=== PATIENT | female | born 1945 | race Caucasian/White ===

== ENCOUNTER → 2016-12-20 | Outpatient (CLI) | payer MEDICARE, OTHER ==
[~2016-12-20] MED LIST: ASPIRIN EC81 M1 PO; HYDROCHLOROTHIA25 MG PO; KLOR-CON PO; LISINOPRIL2.5 MG PO; SIMVASTATIN20 MG PO
--- NOTE | ~2016-12-20 | EKG ---
PATIENT: JAGRUTI CHI UNIT #: [id number] Ventricular Rate: 70 BPM Atrial Rate: 70 BPM P-R Interval: 136 ms QRS Duration: 84 ms Q-T Interval: 406 ms QTC Calculation(Bezet): 438 ms P [place]: 28 degrees Calculated R [place]: -21 degrees Calculated T [place]: 8 degrees Diagnosis Line: Normal sinus rhythm Diagnosis Line: Cannot rule out Anterior infarct , age Diagnosis Line: undetermined Diagnosis Line: Abnormal ECG Diagnosis Line: No previous ECGs available Diagnosis Line: Confirmed by DAYNA MCGRATH MD ([id number]) on 12/25/2016 Diagnosis Line: 2:33:41 PM INTERPRETING MD: RAMILA DHILLON
--- NOTE | ~2016-12-20 | CR63 ---
[facility] A Service of [facility] RADIOLOGY TEXT RESULTS PATIENT: JAGRUTI CHI LOCATION: [facility] : 45 UNIT #: [id number] AGE: [address]: Chicho Barajas MD SEX: F ORDER DR: [id number] [facility] [address] [place], [place] [address] [id number] O MR#: [id number] Acc #: [id number] NAME: JAGRUTI CHI : 1945 SEX: F STUDY DATE/TIME: 12/20/2016 12:07 UNIT: [facility] ROOM: STUDY DESCRIPTION: CR Chest 2 View Attending Physician: Chicho Barajas M.D. Referring Physician: Chicho Barajas M.D. Ordering Physician: Chicho Barajas M.D. Primary Care Physician: Madonna Meredith A.P.R.N. MEDICAL IMAGING REPORT This report is preliminary unless electronic signature is present EXAM Chest, 12/20/2016; [facility]. HISTORY 71-year-old woman preop clearance, right knee arthroscopy. History of hypertension and hyperlipidemia, short of air with activity. COMPARISON None. FINDINGS Two-view chest demonstrates normal heart size. Aorta appears normal. Hilar structures are normal. Bilateral lungs are expanded and clear. Costophrenic angles are preserved. IMPRESSION Negative chest. Dictated by... Lonnie Dewey M.D. THIS IS AN ELECTRONICALLY VERIFIED REPORT Lonnie Dewey M.D. at 12/21/2016 3:01 PM JOVITA/kerline TD: 12/20/2016 20:35 JOB #: [id number] MEDICAL IMAGING REPORT Page 1 of 1 COPY
[2016-12-20 11:50] LABS: HEMATOCRIT 39.3 % (35.0-45.0); HEMOGLOBIN 12.9 gm/dL (12.0-16.0); MEAN CELL VOLUME 85.1 FL (83-96); MEAN CORPUSCULAR HGB CONC 32.9 g/dL (30-36); MEAN PLATELET VOLUME 8.7 FL (6.5-11.5); RED BLOOD COUNT 4.62 X10e (3.90-5.30); RED CELL DISTRIBUTION WIDTH 13.9 % (11.0-15.5); WHITE BLOOD COUNT 7.8 X10e3 (4.0-10.5)
[2016-12-20 11:52] LABS: URINE APPEARANCE CLEAR; URINE BILIRUBIN NEG (NEG); URINE BLOOD NEG (NEG); URINE COLOR YELLOW; URINE GLUCOSE NEG (NEG); URINE KETONE NEG (NEG); URINE LEUKOCYTE ESTERASE NEG (NEG); URINE NITRATE NEG (NEG); URINE PH 7.5 (5-8); URINE PROTEIN NEG (NEG); URINE SPECIFIC GRAVITY 1.019 (1.003-1.035)
[2016-12-20 12:06] LABS: CULTURE INDICATED? NO; URINE SOURCE CLEAN CATCH
[2016-12-20 12:15] LABS: CALCIUM SERUM 8.8 mg/dL (8.4-10.2); GLOM FILT RATE Estimated 56.7 mL/min (>60); POTASSIUM 4.1 mmol/L (3.5-5.1)
== END | disposition home or self-care (01) ==
LOC: CAMB 10:58
PROVIDERS: Orthopaedic Surgery
DX: Z01.818 Encounter for other preprocedural examination (principal); S83.241A Other tear of medial meniscus, current injury, right knee, initial encounter; S83.281A Other tear of lateral meniscus, current injury, right knee, initial encounter
CPT/HCPCS: 36415; 71020; 80048; 81003; 85027; 93005

== ENCOUNTER → 2016-12-30 | Day surgery (SDC) | payer MEDICARE, OTHER ==
--- NOTE | ~2016-12-30 | OR ---
Unit #: [id number] #: [id number] Patient: JAGRUTI CHI [id number] [address] [place], [place] [address] [id number] O MR#: [id number] NAME: JAGRUTI CHI ROOM: Date of Procedure: 12/30/2016 Admission Date: 12/30/2016 Surgeon: Chicho Barajas M.D. : 1945 Attending Physician: Chicho Barajas M.D. Referring Physician: Chicho Barajas M.D. Primary Care Physician: Generic Doctor Not In System OPERATIVE REPORT PREOPERATIVE DIAGNOSIS Medial meniscal tear of the right knee. POSTOPERATIVE DIAGNOSIS Medial meniscal tear of the right knee. PROCEDURE PERFORMED Arthroscopic partial medial meniscectomy. ANESTHESIA General. ESTIMATED BLOOD LOSS Less than 25. DESCRIPTION OF PROCEDURE The patient was brought to the operating room, given a general anesthetic. Tourniquet placed around the right thigh. The right leg was exsanguinated. Tourniquet inflated to 250, placed in a leg valdez, and prepped and draped. The arthroscope was introduced through the inferolateral portal. The knee was visualized. Suprapatellar pouch was free of debris. The medial and lateral gutters were free of debris. The medial compartment was entered and there was a tear in the anterior portion of the medial meniscus small flap tear and then an another tear in the posterior horn of the medial meniscus. The anterior horn tear was removed with the shaver. The posterior horn tear, a straight basket was used and then the 3.5 shaver. We then used a small up-biting basket and a shaver once again and then probed the meniscus and was found to be stable. The lateral compartment meniscus and articular surfaces were intact. The medial compartment and the articular surfaces showed some degeneration, but no full-thickness loss. We then removed all the fluid from the knee. The joint was injected with 15 mL of 0.5% plain Marcaine. Sterile dressing applied and the patient's tourniquet released and general anesthetic reversed. Dictated by... Sanket Boland/chandler TD: 12/30/2016 08:21 Unit #: [id number] #: [id number] Patient: JAGRUTI CHI JOB #: [id number] OPERATIVE REPORT Page 1 of 1 X Chicho Barajas MD PROCEDURE OPERATIVE NOTE
== END | disposition home or self-care (01) ==
LOC: CSUR 05:48
DX: M23.211 Derangement of anterior horn of medial meniscus due to old tear or injury, right knee (principal); M23.221 Derangement of posterior horn of medial meniscus due to old tear or injury, right knee; I10 Essential (primary) hypertension; E78.5 Hyperlipidemia, unspecified; Z79.899 Other long term (current) drug therapy
CPT/HCPCS: J2250; J3010